=== PATIENT | male | born 1985 | race Caucasian/White ===

== ENCOUNTER 2016-08-08 08:14 | Emergency (ER) | payer OTHER ==
--- NOTE | 2016-08-08 11:29 | DIAGNOSTIC IMAGING REPORT ---
PROCEDURE: CT ABD/PELVIS WITH CONTRAST INDICATION: Abdominal pain. Nausea, vomiting, diarrhea. TECHNIQUE: 125 ml of Isovue 300 were injected intravenously and axial images were obtained of the entire abdomen and pelvis with sagittal and coronal reformations. COMPARISON: Comparison made to CT abdomen and pelvis on 05/13/2015. FINDINGS: ABDOMEN: Gallbladder, liver, spleen, pancreas, kidneys, and aorta are normal. Bowel pattern is normal, including appendix. Mild degenerative changes of the thoracic spine. PELVIS: Pelvic structures are normal. No evidence of free fluid. IMPRESSION: 1. Negative CT abdomen and pelvis. 2. Findings discussed with Dr. Gino Angel. All CT scans at this facility use dose modulation, iterative reconstruction, and/or weight-based dosing when appropriate to reduce radiation dose to as low as reasonably achievable.
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
--- NOTE | 2016-08-08 12:11 | ED ORDER SUMMARY ---
..... Patient: ARLEN DELCID OrderSheet [facility] VisitID: [id number] [address] [place] [address] 31y, M Registration Date/Time: 08/08/2016 ORDER SHEET Weight: 65.7 kg (stated) Allergies: No Known Drug Allergy GENERAL ORDERS: CBC w Diff Urgent (09:08 08/08/2016 Randell Meza) (Ack 9:09 TBergley) (9:40 KWilliams R.N.) CMP Urgent (09:08 08/08/2016 Randell Meza) (Ack 9:09 TBergley) (9:40 KWilliams R.N.) UA-Culture if indicated Urgent (09:08/08/2016 Randell Meza) (Ack 9:09 TBergley) (10:56 KWilliams R.N.) Amylase Urgent (09:08/08/2016 Randell Meza) (Ack 9:09 TBergley) (9:40 KWilliams R.N.) Lipase Urgent (09:08 08/08/2016 Randell Meza) (Ack 9:09 TBergley) (9:40 KWilliams R.N.) CT Abd/Pel w Cont (No) (16/.1) Urgent (10:32 08/08/2016 Randell Meza) (Ack 10:46 TBergley) (11:16 TBergley) MEDICATION ORDERS: IV FLUIDS: IV NS : initial bolus none -, then 1000 mL/hr for X1 (NOW) (09:07 08/08/2016 Randell Meza) (9:47 KWilliams R.N.) Toradol IV 30 mg (NOW) (09:08 08/08/2016 Randell Meza) (9:47 KWilliams R.N.) Zofran IV 4 mg (NOW) (09:08 08/08/2016 Randell Meza) (9:47 KWilliams R.N.) IV NS : initial bolus none -, then 1000 mL/hr for X1 (NOW) (10:51 08/08/2016 Randell Meza) (10:57 KWilliams R.N.) ORDER SHEET NOTES: [Electronically signed by Gino Angel Dr. (12:11 08/08/2016)] [Electronically signed by Maranda Agosto R.N. (12:08/08/2016)] [Electronically locked/signed by Maranda Agosto R.N. (12:08/08/2016)]
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
--- NOTE | 2016-08-08 12:11 | ED ORDER SUMMARY ---
..... Patient: ARLEN DELCID OrderSheet [facility] VisitID: [id number] [address] [place] [address] 31y, M Registration Date/Time: 08/08/2016 ORDER SHEET Weight: 65.7 kg (stated) Allergies: No Known Drug Allergy GENERAL ORDERS: CBC w Diff Urgent (09:08 08/08/2016 Randell Meza) (Ack 9:09 TBergley) (9:40 KWilliams R.N.) CMP Urgent (09:08 08/08/2016 Randell Meza) (Ack 9:09 TBergley) (9:40 KWilliams R.N.) UA-Culture if indicated Urgent (09:08/08/2016 Randell Meza) (Ack 9:09 TBergley) (10:56 KWilliams R.N.) Amylase Urgent (09:08/08/2016 Randell Meza) (Ack 9:09 TBergley) (9:40 KWilliams R.N.) Lipase Urgent (09:08 08/08/2016 Randell Meza) (Ack 9:09 TBergley) (9:40 KWilliams R.N.) CT Abd/Pel w Cont (No) (16/.1) Urgent (10:32 08/08/2016 Randell Meza) (Ack 10:46 TBergley) (11:16 TBergley) MEDICATION ORDERS: IV FLUIDS: IV NS : initial bolus none -, then 1000 mL/hr for X1 (NOW) (09:07 08/08/2016 Randell Meza) (9:47 KWilliams R.N.) Toradol IV 30 mg (NOW) (09:08 08/08/2016 Randell Meza) (9:47 KWilliams R.N.) Zofran IV 4 mg (NOW) (09:08 08/08/2016 Randell Meza) (9:47 KWilliams R.N.) IV NS : initial bolus none -, then 1000 mL/hr for X1 (NOW) (10:51 08/08/2016 Randell Meza) (10:57 KWilliams R.N.) ORDER SHEET NOTES: [Electronically signed by Gino Angel Dr. (12:11 08/08/2016)] [Electronically signed by Maranda Agosto R.N. (12:08/08/2016)] [Electronically locked/signed by Maranda Agosto R.N. (12:08/08/2016)]
--- NOTE | 2016-08-08 12:30 | ED MED RECONCILIATION SUMMARY ---
Patient: ARLEN DELCID Medication Reconciliation Report [facility] VisitID: [id number] [address] [place] [address] 31y, M Registration Date/Time: 08/08/2016 Weight: 65.7 kg Height/Length: 69 in. BMI: 21.4 ALLERGIES: No Known Drug Allergy The patient's Home Medications are listed below: CONTINUE TAKING THE FOLLOWING MEDICATIONS: Nausea Medication Percocet Oral The source(s) of the original Home Medication information: patient The following Medications were given to the patient in the Emergency Department: IV NS IV Fluids bolus 0, then 999 mL/hr, administered: 08/08/2016 9:41:00 AM Toradol [IVP] IVP 30 mg, administered: 08/08/2016 9:42:00 AM Zofran [IVP] IVP 4 mg, administered: 08/08/2016 9:42:00 AM IV NS IV Fluids bolus 0, then 999 mL/hr, administered: 08/08/2016 10:52:00 AM The following Medications were prescribed to the patient: Bentyl 20 mg tablets: take 1 orally every 6 hours as needed for abdominal cramps or abdominal discomfort. Dispense thirty (30). No refill. Substitution is permissible. -- Gino Angel Dr. Zofran ODT 4 mg: take 1 orally every 6 hours as needed for nausea and vomiting. Dispense ten (10). No refill. Substitution is permissible. -- Gino Angel Dr.
--- NOTE | 2016-08-08 12:30 | ED MAR SUMMARY ---
..... Medication Administration Record [facility] [address] [place] [address] Patient: ARLEN DELCID Visit ID: [id number] 31y, M Weight: 65.7 kg Height/Length: 69 in BMI: 21.4 ALLERGIES: No Known Drug Allergy Start 09:41 08/08/2016 Ketan Willard R.N., Stop 10:51 08/08/2016 Ketan Willard R.N. Medication Administered: IV NS (SALINE), Dose: IV Fluids over 1 hour(s), Rate: 999 mL/hr, Dispensed: 1000 mL bag, Site: #1 right AC. Medication Ordered: IV NS : initial bolus none -, then 1000 mL/hr for X1 (NOW). Given 09:42 08/08/2016 Ketan Willard R.N. Medication Administered: TORADOL [IVP], Dose: 30 mg IVP over 2 minute(s), Site: #1 right AC. Medication Ordered: Toradol IV 30 mg (NOW). Given 09:42 08/08/2016 Ketan Willard R.N. Medication Administered: ZOFRAN [IVP] (ONDANSETRON HCL), Dose: 4 mg IVP over 2 minute(s), Site: #1 right AC. Medication Ordered: Zofran IV 4 mg (NOW). Start 10:52 08/08/2016 Ketan Willard R.N., Stop 12:00 08/08/2016 Maranda Agosto R.N. Medication Administered: IV NS (SALINE), Dose: IV Fluids over 1 hour(s), Rate: 999 mL/hr, Dispensed: 1000 mL bag, Site: #1 right AC. Medication Ordered: IV NS : initial bolus none -, then 1000 mL/hr for X1 (NOW).
--- NOTE | 2016-08-08 12:30 | ED DISCHARGE INSTRUCTIONS ---
Patient: ARLEN DELCID General Instructions [facility] VisitID: [id number] [address] [place] [address] 31y, M Registration Date/Time: 08/08/2016 Acute right lower quadrant abdominal pain of unknown cause. INSTRUCTIONS Rest at home today and tomorrow. Drink plenty of fluids. Your Current Medications: CONTINUE TAKING THE FOLLOWING MEDICATIONS: Nausea Medication*. Percocet Oral. Prescription Medications: Bentyl 20 mg tablets: take 1 orally every 6 hours as needed for abdominal cramps or abdominal discomfort. Dispense thirty (30). No refill. Substitution is permissible. Zofran ODT 4 mg: take 1 orally every 6 hours as needed for nausea and vomiting. Dispense ten (10). No refill. Substitution is permissible. Follow-up: Screening today revealed the patient's blood pressure to be in the normal range. Follow-up with: [facility], , , [address], , [place], [id number] Follow up in about two days. Call for an appointment. ADDITIONAL INFORMATION Abdominal Pain,Uncertain Cause [Male] Based on your visit today, the exact cause of your abdominalpain is not clear. Your exam and tests do not indicate a dangerous cause at this time. However, the signs of a serious problem may take more time to appear. Although your evaluation was reassuring today, sometimes early in the course of many conditions, exam and lab tests can appear normal. Therefore, it is important for you to watch for any new symptoms or worsening of your condition. Causes It may not be obvious what caused your symptoms. Pay attention to things that do seem to make your symptoms worse or better and discuss this with your doctor when you follow up. Diagnosis The evaluation of abdominal pain in the emergency department may onlyrequire an exam by the doctor or it may include blood, urine or imaging studies, depending on many factors. Sometimes exams and tests can identify a cause but in many cases, a clear cause is not found. Further testing at follow up visits may help to suggest a clear diagnosis. Home Care Rest as much as possible until your next exam. Try to avoid any medications (unless otherwise directed by your doctor), foods, activities, or other factors that you may have contributed to your symptoms. Try to eat foods that you know that you have tolerated well in the past. Certain diets may be recommended for some conditions that cause abdominal pain. However, since the cause of your symptoms may not be clear, discuss your diet more with your primary care provider or specialist for further recommendations. Eating several small meals per day as opposed to 2 or 3 larger meals may help. Monitor closely for anything that may make your symptoms worse or better. Pay close attention to symptoms below that may indicate worsening of your condition. Follow Up and Precautions See your doctoras instructed or sooneror if your symptoms are not improving.In some cases, you may need more testing. When to Seek Medical Attention Contact your doctor or see medical attention ifany of the following occur: Pain is becoming worse You are unable to take your medications due to excessive vomiting Swelling of the abdomen Fever of 100.4F (38C) or higher, or as directed by your health care provider Blood in vomit or bowel movements (dark red or black color) Jaundice (yellow color of eyes and skin) New onset of weakness, dizziness or fainting New onset of chest, arm, back, neck or jaw pain Dicyclomine Hydrochloride Oral tablet What is this medicine? DICYCLOMINE (dye SYE kloe meen) is used to treat bowel problems including irritable bowel syndrome. How should I use this medicine? Take this medicine by mouth with a glass of water. Follow the directions on the prescription label. It is best to take this medicine on an empty stomach, 30 minutes to 1 hour before meals. Take your medicine at regular intervals. Do not take your medicine more often than directed. Talk to your cook box filler regarding the use of this medicine in children. Special care may be needed. While this drug may be prescribed for children as young as 6 months of age for selected conditions, precautions do apply. Patients over 65 years old may have a stronger reaction and need a smaller dose. What side effects may I notice from receiving this medicine? Side effects that you should report to your doctor or health health care administrator as soon as possible: agitation, nervousness, confusion difficulty swallowing dizziness, drowsiness fast or slow heartbeat hallucinations pain or difficulty passing urine Side effects that usually do not require medical attention (report to your doctor or health health care administrator if they continue or are bothersome): constipation headache nausea or vomiting sexual difficulty What may interact with this medicine? amantadine antacids benztropine digoxin disopyramide medicines for allergies, colds and breathing difficulties medicines for alzheimer's disease medicines for anxiety or sleeping problems medicines for depression or psychotic disturbances medicines for diarrhea medicines for pain metoclopramide tegaserod What if I miss a dose? If you miss a dose, take it as soon as you can. If it is almost time for your next dose, take only that dose. Do not take double or extra doses. Where should I keep my medicine? Keep out of the reach of children. Store at room temperature below 30 degrees C (86 degrees F). Protect from light. Throw away any unused medicine after the expiration date. What should I tell my health care provider before I take this medicine? They need to know if you have any of these conditions: difficulty passing urine esophagus problems or heartburn glaucoma heart disease, or previous heart attack myasthenia gravis prostate trouble stomach infection, or obstruction ulcerative colitis an unusual or allergic reaction to dicyclomine, other medicines, foods, dyes, or preservatives or trying to get breast-feeding What should I watch for while using this medicine? You may get drowsy, dizzy, or have blurred vision. Do not drive, use machinery, or do anything that needs mental alertness until you know how this medicine affects you. To reduce the risk of dizzy or fainting spells, do not sit or stand up quickly, especially if you are an older patient. Alcohol can make you more drowsy, avoid alcoholic drinks. Stay out of bright light and wear sunglasses if this medicine makes your eyes more sensitive to light. Avoid extreme heat (hot tubs, saunas). This medicine can cause you to sweat less than normal. Your body temperature could increase to dangerous levels, which may lead to heat stroke. Antacids can stop this medicine from working. If you get an upset stomach and want to take an antacid, make sure there is an interval of at least 1 to 2 hours before or after you take this medicine. Your mouth may get dry. Chewing sugarless gum or sucking hard candy, and drinking plenty of water may help. Contact your doctor if the problem does not go away or is severe. Ondansetron Oral disintegrating tablet What is this medicine? ONDANSETRON (on CESILIA se renny) is used to treat nausea and vomiting caused by chemotherapy. It is also used to prevent or treat nausea and vomiting after surgery. How should I use this medicine? These tablets are made to dissolve in the mouth. Do not try to push the tablet through the foil backing. With dry hands, peel away the foil backing and gently remove the tablet. Place the tablet in the mouth and allow it to dissolve, then swallow. While you may take these tablets with water, it is not necessary to do so. Talk to your cook box filler regarding the use of this medicine in children. Special care may be needed. What side effects may I notice from receiving this medicine? Side effects that you should report to your doctor or health health care administrator as soon as possible: allergic reactions like skin rash, itching or hives, swelling of the face, lips, or tongue breathing problems dizziness fast or irregular heartbeat feeling faint or lightheaded, falls fever and chills swelling of the hands and feet tightness in the chest Side effects that usually do not require medical attention (report to your doctor or health health care administrator if they continue or are bothersome): constipation or diarrhea headache What may interact with this medicine? Do not take this medicine with any of the following medications: -apomorphine -cisapride -dofetilide -dronedarone -pimozide -thioridazine -ziprasidone This medicine may also interact with the following medications: -carbamazepine -phenytoin -rifampicin -tramadol -other medicines that prolong the QT interval (cause an abnormal heart rhythm) What if I miss a dose? If you miss a dose, take it as soon as you can. If it is almost time for your next dose, take only that dose. Do not take double or extra doses. Where should I keep my medicine? Keep out of the reach of children. Store between 2 and 30 degrees C (36 and 86 degrees F). Throw away any unused medicine after the expiration date. What should I tell my health care provider before I take this medicine? They need to know if you have any of these conditions: heart disease history of irregular heartbeat liver disease low levels of magnesium or potassium in the blood an unusual or allergic reaction to ondansetron, granisetron, other medicines, foods, dyes, or preservatives or trying to get breast-feeding What should I watch for while using this medicine? Check with your doctor or health health care administrator as soon as you can if you have any sign of an allergic reaction. You have been given the following additional information: Abdominal Pain, Unknown Cause, (Male) Dicyclomine Hydrochloride Oral tablet Ondansetron Oral disintegrating tablet Rest at home today and tomorrow. (Electronically signed by Gino Angel Dr. 08/08/2016 12:11)
--- NOTE | 2016-08-08 12:30 | ED MED RECONCILIATION SUMMARY ---
Patient: ARLEN DELCID Medication Reconciliation Report [facility] VisitID: [id number] [address] [place] [address] 31y, M Registration Date/Time: 08/08/2016 Weight: 65.7 kg Height/Length: 69 in. BMI: 21.4 ALLERGIES: No Known Drug Allergy The patient's Home Medications are listed below: CONTINUE TAKING THE FOLLOWING MEDICATIONS: Nausea Medication Percocet Oral The source(s) of the original Home Medication information: patient The following Medications were given to the patient in the Emergency Department: IV NS IV Fluids bolus 0, then 999 mL/hr, administered: 08/08/2016 9:41:00 AM Toradol [IVP] IVP 30 mg, administered: 08/08/2016 9:42:00 AM Zofran [IVP] IVP 4 mg, administered: 08/08/2016 9:42:00 AM IV NS IV Fluids bolus 0, then 999 mL/hr, administered: 08/08/2016 10:52:00 AM The following Medications were prescribed to the patient: Bentyl 20 mg tablets: take 1 orally every 6 hours as needed for abdominal cramps or abdominal discomfort. Dispense thirty (30). No refill. Substitution is permissible. -- Gino Angel Dr. Zofran ODT 4 mg: take 1 orally every 6 hours as needed for nausea and vomiting. Dispense ten (10). No refill. Substitution is permissible. -- Gino Angel Dr.
--- NOTE | 2016-08-08 12:30 | ED MAR SUMMARY ---
..... Medication Administration Record [facility] [address] [place] [address] Patient: ARLEN DELCID Visit ID: [id number] 31y, M Weight: 65.7 kg Height/Length: 69 in BMI: 21.4 ALLERGIES: No Known Drug Allergy Start 09:41 08/08/2016 Ketan Willard R.N., Stop 10:51 08/08/2016 Ketan Willard R.N. Medication Administered: IV NS (SALINE), Dose: IV Fluids over 1 hour(s), Rate: 999 mL/hr, Dispensed: 1000 mL bag, Site: #1 right AC. Medication Ordered: IV NS : initial bolus none -, then 1000 mL/hr for X1 (NOW). Given 09:42 08/08/2016 Ketan Willard R.N. Medication Administered: TORADOL [IVP], Dose: 30 mg IVP over 2 minute(s), Site: #1 right AC. Medication Ordered: Toradol IV 30 mg (NOW). Given 09:42 08/08/2016 Ketan Willard R.N. Medication Administered: ZOFRAN [IVP] (ONDANSETRON HCL), Dose: 4 mg IVP over 2 minute(s), Site: #1 right AC. Medication Ordered: Zofran IV 4 mg (NOW). Start 10:52 08/08/2016 Ketan Willard R.N., Stop 12:00 08/08/2016 Maranda Agosto R.N. Medication Administered: IV NS (SALINE), Dose: IV Fluids over 1 hour(s), Rate: 999 mL/hr, Dispensed: 1000 mL bag, Site: #1 right AC. Medication Ordered: IV NS : initial bolus none -, then 1000 mL/hr for X1 (NOW).
--- NOTE | 2016-08-08 12:30 | ED DISCHARGE INSTRUCTIONS ---
Patient: ARLEN DELCID General Instructions [facility] VisitID: [id number] [address] [place] [address] 31y, M Registration Date/Time: 08/08/2016 Acute right lower quadrant abdominal pain of unknown cause. INSTRUCTIONS Rest at home today and tomorrow. Drink plenty of fluids. Your Current Medications: CONTINUE TAKING THE FOLLOWING MEDICATIONS: Nausea Medication*. Percocet Oral. Prescription Medications: Bentyl 20 mg tablets: take 1 orally every 6 hours as needed for abdominal cramps or abdominal discomfort. Dispense thirty (30). No refill. Substitution is permissible. Zofran ODT 4 mg: take 1 orally every 6 hours as needed for nausea and vomiting. Dispense ten (10). No refill. Substitution is permissible. Follow-up: Screening today revealed the patient's blood pressure to be in the normal range. Follow-up with: [facility], , , [address], , [place], [id number] Follow up in about two days. Call for an appointment. ADDITIONAL INFORMATION Abdominal Pain,Uncertain Cause [Male] Based on your visit today, the exact cause of your abdominalpain is not clear. Your exam and tests do not indicate a dangerous cause at this time. However, the signs of a serious problem may take more time to appear. Although your evaluation was reassuring today, sometimes early in the course of many conditions, exam and lab tests can appear normal. Therefore, it is important for you to watch for any new symptoms or worsening of your condition. Causes It may not be obvious what caused your symptoms. Pay attention to things that do seem to make your symptoms worse or better and discuss this with your doctor when you follow up. Diagnosis The evaluation of abdominal pain in the emergency department may onlyrequire an exam by the doctor or it may include blood, urine or imaging studies, depending on many factors. Sometimes exams and tests can identify a cause but in many cases, a clear cause is not found. Further testing at follow up visits may help to suggest a clear diagnosis. Home Care Rest as much as possible until your next exam. Try to avoid any medications (unless otherwise directed by your doctor), foods, activities, or other factors that you may have contributed to your symptoms. Try to eat foods that you know that you have tolerated well in the past. Certain diets may be recommended for some conditions that cause abdominal pain. However, since the cause of your symptoms may not be clear, discuss your diet more with your primary care provider or specialist for further recommendations. Eating several small meals per day as opposed to 2 or 3 larger meals may help. Monitor closely for anything that may make your symptoms worse or better. Pay close attention to symptoms below that may indicate worsening of your condition. Follow Up and Precautions See your doctoras instructed or sooneror if your symptoms are not improving.In some cases, you may need more testing. When to Seek Medical Attention Contact your doctor or see medical attention ifany of the following occur: Pain is becoming worse You are unable to take your medications due to excessive vomiting Swelling of the abdomen Fever of 100.4F (38C) or higher, or as directed by your health care provider Blood in vomit or bowel movements (dark red or black color) Jaundice (yellow color of eyes and skin) New onset of weakness, dizziness or fainting New onset of chest, arm, back, neck or jaw pain Dicyclomine Hydrochloride Oral tablet What is this medicine? DICYCLOMINE (dye SYE kloe meen) is used to treat bowel problems including irritable bowel syndrome. How should I use this medicine? Take this medicine by mouth with a glass of water. Follow the directions on the prescription label. It is best to take this medicine on an empty stomach, 30 minutes to 1 hour before meals. Take your medicine at regular intervals. Do not take your medicine more often than directed. Talk to your airplane captain regarding the use of this medicine in children. Special care may be needed. While this drug may be prescribed for children as young as 6 months of age for selected conditions, precautions do apply. Patients over 65 years old may have a stronger reaction and need a smaller dose. What side effects may I notice from receiving this medicine? Side effects that you should report to your doctor or health caregivers non medical as soon as possible: agitation, nervousness, confusion difficulty swallowing dizziness, drowsiness fast or slow heartbeat hallucinations pain or difficulty passing urine Side effects that usually do not require medical attention (report to your doctor or health caregivers non medical if they continue or are bothersome): constipation headache nausea or vomiting sexual difficulty What may interact with this medicine? amantadine antacids benztropine digoxin disopyramide medicines for allergies, colds and breathing difficulties medicines for alzheimer's disease medicines for anxiety or sleeping problems medicines for depression or psychotic disturbances medicines for diarrhea medicines for pain metoclopramide tegaserod What if I miss a dose? If you miss a dose, take it as soon as you can. If it is almost time for your next dose, take only that dose. Do not take double or extra doses. Where should I keep my medicine? Keep out of the reach of children. Store at room temperature below 30 degrees C (86 degrees F). Protect from light. Throw away any unused medicine after the expiration date. What should I tell my health care provider before I take this medicine? They need to know if you have any of these conditions: difficulty passing urine esophagus problems or heartburn glaucoma heart disease, or previous heart attack myasthenia gravis prostate trouble stomach infection, or obstruction ulcerative colitis an unusual or allergic reaction to dicyclomine, other medicines, foods, dyes, or preservatives or trying to get breast-feeding What should I watch for while using this medicine? You may get drowsy, dizzy, or have blurred vision. Do not drive, use machinery, or do anything that needs mental alertness until you know how this medicine affects you. To reduce the risk of dizzy or fainting spells, do not sit or stand up quickly, especially if you are an older patient. Alcohol can make you more drowsy, avoid alcoholic drinks. Stay out of bright light and wear sunglasses if this medicine makes your eyes more sensitive to light. Avoid extreme heat (hot tubs, saunas). This medicine can cause you to sweat less than normal. Your body temperature could increase to dangerous levels, which may lead to heat stroke. Antacids can stop this medicine from working. If you get an upset stomach and want to take an antacid, make sure there is an interval of at least 1 to 2 hours before or after you take this medicine. Your mouth may get dry. Chewing sugarless gum or sucking hard candy, and drinking plenty of water may help. Contact your doctor if the problem does not go away or is severe. Ondansetron Oral disintegrating tablet What is this medicine? ONDANSETRON (on CESILIA se renny) is used to treat nausea and vomiting caused by chemotherapy. It is also used to prevent or treat nausea and vomiting after surgery. How should I use this medicine? These tablets are made to dissolve in the mouth. Do not try to push the tablet through the foil backing. With dry hands, peel away the foil backing and gently remove the tablet. Place the tablet in the mouth and allow it to dissolve, then swallow. While you may take these tablets with water, it is not necessary to do so. Talk to your airplane captain regarding the use of this medicine in children. Special care may be needed. What side effects may I notice from receiving this medicine? Side effects that you should report to your doctor or health caregivers non medical as soon as possible: allergic reactions like skin rash, itching or hives, swelling of the face, lips, or tongue breathing problems dizziness fast or irregular heartbeat feeling faint or lightheaded, falls fever and chills swelling of the hands and feet tightness in the chest Side effects that usually do not require medical attention (report to your doctor or health caregivers non medical if they continue or are bothersome): constipation or diarrhea headache What may interact with this medicine? Do not take this medicine with any of the following medications: -apomorphine -cisapride -dofetilide -dronedarone -pimozide -thioridazine -ziprasidone This medicine may also interact with the following medications: -carbamazepine -phenytoin -rifampicin -tramadol -other medicines that prolong the QT interval (cause an abnormal heart rhythm) What if I miss a dose? If you miss a dose, take it as soon as you can. If it is almost time for your next dose, take only that dose. Do not take double or extra doses. Where should I keep my medicine? Keep out of the reach of children. Store between 2 and 30 degrees C (36 and 86 degrees F). Throw away any unused medicine after the expiration date. What should I tell my health care provider before I take this medicine? They need to know if you have any of these conditions: heart disease history of irregular heartbeat liver disease low levels of magnesium or potassium in the blood an unusual or allergic reaction to ondansetron, granisetron, other medicines, foods, dyes, or preservatives or trying to get breast-feeding What should I watch for while using this medicine? Check with your doctor or health caregivers non medical as soon as you can if you have any sign of an allergic reaction. You have been given the following additional information: Abdominal Pain, Unknown Cause, (Male) Dicyclomine Hydrochloride Oral tablet Ondansetron Oral disintegrating tablet Rest at home today and tomorrow. (Electronically signed by Gino Angel Dr. 08/08/2016 12:11)
== END 2016-08-08 12:22 | disposition home or self-care (01) ==
LOC: ED SRH 08:14
DX: R10.31 Right lower quadrant pain (principal); F17.210 Nicotine dependence, cigarettes, uncomplicated
CPT/HCPCS: 90004; 90100; 92235; 92530; 95059